=== PATIENT | female | born 1965 | race Caucasian/White ===

== ENCOUNTER 2019-09-19 14:37 | Emergency (ER) | payer SELFPAY ==
[2019-09-19 14:39] VITALS: BP 156/94; PULSE 61; RESP 18; TEMP 36.8; O2SAT 96; BMI 28.2
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
--- NOTE | 2019-09-19 14:51 | EKG12_ITS ---
Test Reason : MENTAL EVAL Blood Pressure : / mmHG Vent. Rate : 099 BPM Atrial Rate : 099 BPM P-R Int : 142 ms QRS Dur : 092 ms QT Int : 342 ms P-R-T Axes : 050 014 005 degrees QTc Int : 438 ms Normal sinus rhythm Normal ECG Confirmed by VIJAY LAUREN, LIBORIO ([id number]), web editor JULIANNE FARIA ([id number]) on 09/24/2019 8:54:34 AM Referred By: ROSANGELA Confirmed By:LIBORIO LINARES MD
[2019-09-19 15:33] LABS: Vista UDS pH Range 5
--- NOTE | 2019-09-19 15:45 | CM.ED ---
SOCIAL WORK Collaboration with Dr. Krueger. Patient will require inpatient psych hospitalization for stabilization. Patient is self-pay. Crisis to evaluate once medically cleared. Staff updated. Angel Luis Fitzgerald, HYDROELECTRIC PRODUCTION TECHNICIAN, EIGHT ARM OPERATOR
--- NOTE | 2019-09-19 16:00 | ED.RN ---
[employer] CALLED DUE TO PATIENT BEING UNCOOPERATIVE AND REFUSING BLOODWORK AND MEDICATIONS. STATES WE ARE DOING THIS AGAINST HER WILL AND IT IS AGAINST THE LAW. STATES SHE IS GOING TO [place]. PD AT BEDSIDE SPEAKING WITH PATIENT. AFTER EXTENSIVE TALKING WITH PATIENT BY PD AND ER STAFF PATIENT AGREES TO MEDICATION AND BLOODWORK.
--- NOTE | 2019-09-19 16:14 | ED.RN ---
[place] [employer] CONTACTED TO ASSIST WITH PT
[2019-09-19] MEDS: Ziprasidone IM 20 MG/ML VIAL IM (16:35)
[2019-09-19 16:40] LABS: Amphetamine Urine VISTA NEGATIVE (<1000 ng/mL); Barbiturate Urine VISTA NEGATIVE (< 200 ng/mL); Benzodiazepine Urine VISTA NEGATIVE (< 200 ng/mL); Cocaine Urine VISTA NEGATIVE (< 300 ng/mL); Ecstacy Urine VISTA NEGATIVE (< 500 ng/mL); Methadone Urine VISTA NEGATIVE (< 300 ng/mL); PCP Urine VISTA NEGATIVE (< 25 ng/mL); THC Urine VISTA NEGATIVE (< 50 ng/mL)
[2019-09-19 17:08] LABS: Absolute Lymphocyte Count 2.09 X10^3/uL (0.83-4.51); Absolute Neutrophil Count 6.3 X10^3/uL (2.0-7.7); Basophil# 0.02 X10^3/uL; Basophil% 0.2 % (0-1); Eosinophil# 0.05 X10^3/uL; Eosinophils% 0.5 % (0-5); Hematocrit 40.5 % (37-47); Hemoglobin 12.8 g/dL (12.0-15.0); Lymphocyte # 2.09 X10^3/ul (4.0); Lymphocyte % 22.4 % (19-41); Mean Corp Hgb Conc 31.6 g/dL (32-36); Mean Corpuscular Hgb 27.2 pg (27.0-32.0); Mean Platelet Vol. 10.4 fl (6.2-12.0); Monocyte# 0.84 X10^3/uL; NRBC Flagged by Analyzer 0 % (0-5); Neutrophil # 6.31 X10^3/uL (2.7-7.7); Neutrophil % 67.6 % (47-70); Platelet Count 337 K/mm3 (150-450); RBC Distribution Width CV 13.2 % (11.6-14.6); RBC Distribution Width SD 40.8 fl (35.1-43.9); Red Blood Count 4.71 M/mm3 (4.2-5.4); White Blood Count 9.3 K/mm3 (4.4-11.0)
[2019-09-19 17:21] LABS: Red Blood Cells-Urine 0 SEEN /hpf (0-5)
[2019-09-19 17:22] LABS: Color, Urine Amber (Yellow); Glucose, Dipstick Normal (Normal); Ketone-Dipstick 50 mg/dl (Negative); Leukocyte Esterase-Dipstick 500 /ul (Negative); Nitrite-Dipstick Negative (Negative); Occult Blood-Urine 10 /ul (Negative); Protein-Dipstick 30 mg/dl (Negative); Urine Clarity Clear (Clear); Urine Urobilinogen 1 mg/dl (Normal)
[2019-09-19 17:24] LABS: Urine Bilirubin Dipstick 1 mg/dL (Negative)
[2019-09-19 17:29] LABS: Anion Gap 8 (5-15); BUN 17 mg/dL (7-18); BUN/Creat Ratio 21.9 RATIO (10-20); Calcium,Total 10.4 mg/dL (8.5-10.1); Chloride 109 mmol/L (98-107); Creatinine, Serum 0.78 mg/dL (0.55-1.02); EST Glomerular Filtration Rate 82 mL/min (>60); Est Glom Filt Rate - Afr Amer 99 mL/min (>60); Estimated Creatinine Clearance 75.39 ml/min; Glucose 93 mg/dL (74-106); Potassium 3.3 mmol/L (3.5-5.1); Sodium Level 141 mmol/L (136-145)
[2019-09-19 17:37] LABS: Bacteria 1+ /hpf (None Seen); Calcium Oxalate Crystals Ur 2+ /hpf (<or=2+); Hyaline Cast 10-25 SEEN /lpf (0-5); Mucous, Urine 3+ /hpf (<or=2+); Squamous Epithelial Cells - UA 5-10 SEEN /hpf (5-10); White Blood Cells 25-50 SEEN /hpf (0-5)
[2019-09-19 18:20] LABS: Alcohol, Blood (Medical)-Serum < 3.0 mg/dL
[2019-09-19 19:11] VITALS: RESP 18
[2019-09-19 19:41] VITALS: BP 133/85; PULSE 95; RESP 16; TEMP 36.5; O2SAT 98
[2019-09-19] MEDS: Cephalexin 250 MG Capsule 500 MG PO (19:46)
[2019-09-19 20:05] LABS: Free T3 3.3 pg/mL (2.18-3.98); T4 Free Direct 1.18 ng/dL (0.76-1.46)
--- NOTE | 2019-09-19 20:59 | CM.ED ---
SOCIAL WORK Crisis called, spoke with Gertrude. Case Liner to fax chart. Gertrude to call in to complete assessment. Angel Luis Fitzgerald, TRAVEL COTA, CARPET YARN WINDER OPERATOR
[2019-09-19 21:00] VITALS: RESP 18
[2019-09-20] VITALS (9 sets, daily range): BP systolic 128–147; BP diastolic 78–98; PULSE 72–97; RESP 14–18; TEMP 36.3; O2SAT 98–100
--- NOTE | 2019-09-20 00:23 | ED.RN ---
Assisted patient to bathroom. Patient ambulated without difficulty and did not require assistance. Provided patient with sandwich,water, cheese stick, and applesauce per request.
--- NOTE | 2019-09-20 01:44 | ED.RN ---
Patient on phone with crisis.
[2019-09-20] MEDS: Acetaminophen 500 MG Tablet 1000 MG PO (03:45)
[2019-09-20] MEDS: Ibuprofen 600 MG Tablet PO (14:03)
--- NOTE | 2019-09-20 16:21 | NURSING ---
PATIENT ACCEPTED AT [facility]. CRISIS TO CALL FOR TRANSPORTATION
--- NOTE | 2019-09-20 16:26 | NURSING ---
[facility] COMING FOR PATIENT
== END 2019-09-20 17:09 ==
PROVIDERS: Emergency Provider Emergency Medicine
DX: F30.2 Manic episode, severe with psychotic symptoms (principal); Z91.411 Personal history of adult psychological abuse; Z87.440 Personal history of urinary (tract) infections
CPT/HCPCS: 80048; 80307; 80320; 81001; 84439; 84443; 84481; 85025; 87086; 87088; 87635; 93005; 94799; 96372; 99284; G0480; J3486; U0003

== ENCOUNTER 2019-10-01 01:39 | Emergency (ER) | payer SELFPAY ==
[2019-10-01] VITALS (11 sets, daily range): BP systolic 127–159; BP diastolic 76–103; PULSE 96–119; RESP 14–20; TEMP 36.4; O2SAT 98–100; BMI 28.2
--- NOTE | 2019-10-01 02:05 | ED.DCSUM_ITS ---
History of Present Illness Chief Complaint: Mental Health Informant: Patient Associated Symptoms: Negative for: Change in Eating, Change in sleeping, Suicidal Thoughts, Visual Hallucinations, Auditory Hallucinations Narrative: Patient is brought by police elisa, after being found going from one person's property to another, she was not soliciting anything in particular but tells police that she was looking for a meth lab and also told them that she stopped taking her medication, and had not slept in 3 nights. However, here, she states she has been sleeping well, and taking her medication which is trazodone, although she states it does not help her anyway. She states she is on a different medication for sleep and it seems to be working well since she sleeps with no problem. States she has been eating okay as well. Denies any suicidal ideation, drug use, alcohol use. She does not know what her mental health diagnosis is. Past Medical History - Allergies and Home Meds Allergies/Adverse Reactions: Allergies No Known Allergies Allergy (Verified 09/19/19 19:48) Primary Care Physician: Care Physician,No Primary [Primary Care Provider] - Lives: Alone Smoking Status: Never smoker Alcohol: None Drugs: None Review of Systems ROS: Unable to Obtain - very limited due to pt not able to complete a thought; very tangential General: Denies: Chills, Fever ENT: Reports: - - Canker sores everywhere in my mouth that she states are not as bad right now. Denies: Rhinorrhea, Sore throat Cardiovascular: Denies: Chest pain Respiratory: Denies: Dyspnea Gastrointestinal: Denies: Abdominal pain, Nausea, Vomiting, Diarrhea Genitourinary: Reports: Frequency. Denies: Dysuria Musculoskeletal: Denies: Swelling, Extremity Pain Skin: Denies: Rash, Wounds Neurological: Denies: Headache, Weakness, Numbness Physical Exam Vital Signs/Narrative: Vital Signs Temp Pulse Resp BP Pulse Ox 10/01/19 01:40 97.5 F L 119 H 20 H 148/103 H 99 Inital Vital Signs reviewed: Yes General: Well nourished, Well developed, - - NAD Head: Normocephalic, Atraumatic Eyes: Perrl, EOMI ENT: Moist mucous membranes, No rhinorrhea, - - No intraoral mucosal or tongue lesions noted Neck: Supple, Nontender Cardiovascular: Regular rate, Regular rhythm, No murmurs Respiratory: No distress, CTA bilaterally, Chest nontender Abdomen: Soft, Nontender, Nondistended, Normal bowel sounds Back: Nontender, Normal Inspection. Negative for: CVA tenderness Extremities: Nontender, No Edema Skin: Normal color, No rash, No Trauma Neurological: Alert, Oriented x3, Cranial nerves II-XII grossly intact, Normal Strength, Normal Sensation, Normal Gait Psych: No suicidal or homicidal ideation, Normal Stable Appropriate Affect, Labile - at times, Pressured Speech, Flight of Ideas, Incoherent thoughts - loose associations, very tangential. Negative for: Hallucinations, Delusions Diagnostic/Tx/Re-eval Laboratory Tests 10/01/19 10/01/19 10/01/19 Range/Units 04:00 04:00 02:15 WBC (4.4-11.0) K/mm3 RBC (4.2-5.4) M/mm3 Hgb (12.0-15.0) g/dL Hct (37-47) % MCV (81-99) fL MCH (27.0-32.0) pg MCHC (32-36) g/dL RDW Std Deviation (35.1-43.9) fl RDW Coeff of Sendy (11.6-14.6) % Plt Count (150-450) K/mm3 MPV (6.2-12.0) fl Immature Gran % (Auto) (0.0-0.9) % Neut % (Auto) (47-70) % Lymph % (Auto) (19-41) % [place] % (Auto) (0-10) % Eos % (Auto) (0-5) % Baso % (Auto) (0-1) % Absolute Neuts (auto) (2.0-7.7) X10^3/uL Absolute Lymphs (auto) (0.83-4.51) X10^3/uL Nucleated RBC % (0-5) % Sodium (136-145) mmol/L Potassium (3.5-5.1) mmol/L Chloride (98-107) mmol/L Carbon Dioxide (21.0-32.0) mmol/L Anion Gap (5-15) BUN (7-18) mg/dL Creatinine (0.55-1.02) mg/dL Estim Creat Clear Calc ml/min Est GFR (MDRD) Af Amer (>60) mL/min Est GFR (MDRD) Non-Af (>60) mL/min BUN/Creatinine Ratio (10-20) RATIO Glucose (74-106) mg/dL Calcium (8.5-10.1) mg/dL TSH (0.358-3.74) uIU/mL Urine Color Yellow (Yellow) Urine Clarity Clear (Clear) Urine pH 5.0 (5.0 - 8.0) Ur Specific [place] 1.025 (1.002-1.030) Urine Protein Negative (Negative) mg/dl Urine Glucose (UA) Normal (Normal) mg/dl Urine Ketones 150 H (Negative) mg/dl Urine Occult Blood 10 H (Negative) /ul Urine Nitrite Negative (Negative) Urine Bilirubin Negative (Negative) mg/dL Urine Urobilinogen Normal (Normal) mg/dl Ur Leukocyte Esterase 500 H (Negative) /ul Urine RBC 0 SEEN (0-5) /hpf Urine WBC 5-10 SEEN (0-5) /hpf Ur Squamous Epith Cells 50-100 SEEN (5-10) /hpf Urine Bacteria 0 SEEN (None Seen) /hpf Urine Mucus 2+ (<or=2+) /hpf Urine Opiates Screen NEGATIVE (< 300 ng/mL) Urine Methadone Screen NEGATIVE (< 300 ng/mL) Ur Barbiturates Screen NEGATIVE (< 200 ng/mL) Ur Phencyclidine Scrn NEGATIVE (< 25 ng/mL) Ur Amphetamines Screen NEGATIVE (<1000 ng/mL) U Methamphetamin-MDMA NEGATIVE (< 500 ng/mL) U Benzodiazepines Scrn NEGATIVE (< 200 ng/mL) Urine Cocaine Screen NEGATIVE (< 300 ng/mL) U Cannabinoids Screen NEGATIVE (< 50 ng/mL) Ur Drug Screen Comment Ethyl Alcohol 6.0 mg/dL 10/01/19 10/01/19 Range/Units 02:15 02:15 WBC 11.5 H (4.4-11.0) K/mm3 RBC 4.57 (4.2-5.4) M/mm3 Hgb 12.4 (12.0-15.0) g/dL Hct 40.2 (37-47) % MCV 88.0 (81-99) fL MCH 27.1 (27.0-32.0) pg MCHC 30.8 L (32-36) g/dL RDW Std Deviation 42.6 (35.1-43.9) fl RDW Coeff of Sendy 13.3 (11.6-14.6) % Plt Count 302 (150-450) K/mm3 MPV 10.4 (6.2-12.0) fl Immature Gran % (Auto) 0.300 (0.0-0.9) % Neut % (Auto) 71.5 H (47-70) % Lymph % (Auto) 19.0 (19-41) % [place] % (Auto) 8.3 (0-10) % Eos % (Auto) 0.5 (0-5) % Baso % (Auto) 0.4 (0-1) % Absolute Neuts (auto) 8.2 H (2.0-7.7) X10^3/uL Absolute Lymphs (auto) 2.17 (0.83-4.51) X10^3/uL Nucleated RBC % 0 (0-5) % Sodium 137 (136-145) mmol/L Potassium 4.0 (3.5-5.1) mmol/L Chloride 104 (98-107) mmol/L Carbon Dioxide 26.0 (21.0-32.0) mmol/L Anion Gap 7 (5-15) BUN 22 H (7-18) mg/dL Creatinine 0.90 (0.55-1.02) mg/dL Estim Creat Clear Calc 65.34 ml/min Est GFR (MDRD) Af Amer 83 (>60) mL/min Est GFR (MDRD) Non-Af 68 (>60) mL/min BUN/Creatinine Ratio 24.3 H (10-20) RATIO Glucose 90 (74-106) mg/dL Calcium 10.5 H (8.5-10.1) mg/dL TSH 0.54 (0.358-3.74) uIU/mL Urine Color (Yellow) Urine Clarity (Clear) Urine pH (5.0 - 8.0) Ur Specific [place] (1.002-1.030) Urine Protein (Negative) mg/dl Urine Glucose (UA) (Normal) mg/dl Urine Ketones (Negative) mg/dl Urine Occult Blood (Negative) /ul Urine Nitrite (Negative) Urine Bilirubin (Negative) mg/dL Urine Urobilinogen (Normal) mg/dl Ur Leukocyte Esterase (Negative) /ul Urine RBC (0-5) /hpf Urine WBC (0-5) /hpf Ur Squamous Epith Cells (5-10) /hpf Urine Bacteria (None Seen) /hpf Urine Mucus (<or=2+) /hpf Urine Opiates Screen (< 300 ng/mL) Urine Methadone Screen (< 300 ng/mL) Ur Barbiturates Screen (< 200 ng/mL) Ur Phencyclidine Scrn (< 25 ng/mL) Ur Amphetamines Screen (<1000 ng/mL) U Methamphetamin-MDMA (< 500 ng/mL) U Benzodiazepines Scrn (< 200 ng/mL) Urine Cocaine Screen (< 300 ng/mL) U Cannabinoids Screen (< 50 ng/mL) Ur Drug Screen Comment Ethyl Alcohol mg/dL Patient remained cooperative. She is quite manic. Crisis discussed with her over the phone and agrees. She is medically cleared with the above labs, the urinalysis was sent for culture since it dipped for 500 leukocyte esterase, however with the amount of epithelial cells in it and 0 bacteria, it is more likely to be due to contamination than true infection. Expected plan is pink slip to psychiatric facility for inpatient treatment and further evaluation. ED Disposition - Plan for ED Patient: Disposition: Psychiatric Hospital or Unit Diagnosis: Mckayla
[2019-10-01 02:25] LABS: Absolute Lymphocyte Count 2.17 X10^3/uL (0.83-4.51); Absolute Neutrophil Count 8.2 X10^3/uL (2.0-7.7); Basophil# 0.05 X10^3/uL; Basophil% 0.4 % (0-1); Eosinophil# 0.06 X10^3/uL; Eosinophils% 0.5 % (0-5); Hematocrit 40.2 % (37-47); Hemoglobin 12.4 g/dL (12.0-15.0); Lymphocyte # 2.17 X10^3/ul (4.0); Mean Corp Hgb Conc 30.8 g/dL (32-36); Mean Corpuscular Hgb 27.1 pg (27.0-32.0); Mean Platelet Vol. 10.4 fl (6.2-12.0); Monocyte# 0.95 X10^3/uL; Monocyte% 8.3 % (0-10); NRBC Flagged by Analyzer 0 % (0-5); Neutrophil # 8.18 X10^3/uL (2.7-7.7); Neutrophil % 71.5 % (47-70); Platelet Count 302 K/mm3 (150-450); RBC Distribution Width CV 13.3 % (11.6-14.6); RBC Distribution Width SD 42.6 fl (35.1-43.9); Red Blood Count 4.57 M/mm3 (4.2-5.4); White Blood Count 11.5 K/mm3 (4.4-11.0)
[2019-10-01 02:50] LABS: Anion Gap 7 (5-15); BUN 22 mg/dL (7-18); BUN/Creat Ratio 24.3 RATIO (10-20); Calcium,Total 10.5 mg/dL (8.5-10.1); Chloride 104 mmol/L (98-107); EST Glomerular Filtration Rate 68 mL/min (>60); Est Glom Filt Rate - Afr Amer 83 mL/min (>60); Estimated Creatinine Clearance 65.34 ml/min; Glucose 90 mg/dL (74-106); Sodium Level 137 mmol/L (136-145); Thyroid Stim Hormone (TSH) 0.54 uIU/mL (0.358-3.74)
--- NOTE | 2019-10-01 03:11 | ED.RN ---
CALLED CRISIS, SPOKE TO ALEKSANDR, AND FAXED THE REPORT
--- NOTE | 2019-10-01 03:41 | ED.RN ---
CRISIS ON THE PHONE WITH THE PT
[2019-10-01 04:09] LABS: Bacteria 0 SEEN /hpf (None Seen); Red Blood Cells-Urine 0 SEEN /hpf (0-5)
[2019-10-01 04:10] LABS: Color, Urine Yellow (Yellow); Glucose, Dipstick Normal (Normal); Leukocyte Esterase-Dipstick 500 /ul (Negative); Nitrite-Dipstick Negative (Negative); Occult Blood-Urine 10 /ul (Negative); Protein-Dipstick Negative (Negative); Specific Gravity, Urine 1.025 (1.002-1.030); Urine Bilirubin Dipstick Negative (Negative); Urine Clarity Clear (Clear); Urine Urobilinogen Normal (Normal)
[2019-10-01 04:22] LABS: Ketone-Dipstick 150 mg/dl (Negative)
[2019-10-01 04:29] LABS: Mucous, Urine 2+ /hpf (<or=2+); Squamous Epithelial Cells - UA 50-100 SEEN /hpf (5-10); White Blood Cells 5-10 SEEN /hpf (0-5)
[2019-10-01 04:32] LABS: Amphetamine Urine VISTA NEGATIVE (<1000 ng/mL); Barbiturate Urine VISTA NEGATIVE (< 200 ng/mL); Benzodiazepine Urine VISTA NEGATIVE (< 200 ng/mL); Cocaine Urine VISTA NEGATIVE (< 300 ng/mL); Ecstacy Urine VISTA NEGATIVE (< 500 ng/mL); Methadone Urine VISTA NEGATIVE (< 300 ng/mL); PCP Urine VISTA NEGATIVE (< 25 ng/mL); THC Urine VISTA NEGATIVE (< 50 ng/mL); Vista UDS pH Range 6
--- NOTE | 2019-10-01 07:07 | EKG12_ITS ---
Test Reason : MENTAL HEALTH Blood Pressure : / mmHG Vent. Rate : 115 BPM Atrial Rate : 115 BPM P-R Int : 140 ms QRS Dur : 084 ms QT Int : 340 ms P-R-T Axes : 051 058 032 degrees QTc Int : 470 ms Sinus tachycardia Possible Left atrial enlargement Borderline ECG Confirmed by AMBER HOPPER ([id number]), television news video editor CHARMAINE WOODS ([id number]) on 10/04/2019 1:22:49 PM Referred By: GORAN Confirmed By:AMBER HOPPER
--- NOTE | 2019-10-01 07:08 | ED.RN ---
[facility] called back and requesting additional information for admission
[2019-10-01 07:29] LABS: AST(SGOT) 37 U/L (15-37); Alanine Aminotransfer ALT/SGPT 39 U/L (13-56); Albumin, Serum 4.6 g/dL (3.2-5.0); Alkaline Phosphatase 114 U/L (45-117); Bilirubin, Direct 0.21 mg/dL (0.00-0.30); Globulin 3.7 g/dL (2.2-4.2); Protein, Total 8.3 g/dL (6.4-8.2)
[2019-10-01] MEDS: Ziprasidone IM 20 MG/ML VIAL IM (14:47)
--- NOTE | 2019-10-01 16:25 | NURSING ---
ACCEPTED AT [facility] CALLED BLATA RAMIREZ, TO ARRANGE TRANSPORT
== END 2019-10-01 17:42 ==
PROVIDERS: Emergency Provider Emergency Medicine
DX: F30.9 Manic episode, unspecified (principal); R35.0 Frequency of micturition; Z91.14 Patient's other noncompliance with medication regimen
CPT/HCPCS: 36415; 80048; 80076; 80307; 80320; 81001; 84443; 85025; 87086; 87088; 93005; 96372; 99285; G0480; J3486

== ENCOUNTER 2020-01-28 09:32 | Emergency (ER) | payer SELFPAY ==
[2019-10-01 01:40] VITALS: BMI 28.2
[2020-01-28 09:33] VITALS: BP 135/76; PULSE 133; RESP 18; TEMP 36.6; O2SAT 98; BMI 22.3
--- NOTE | 2020-01-28 10:07 | ED.VISSUMM ---
- ER Visit Summary Date of Service: 01/28/20 Chief Complaint: [Abnormal behavior] History of Present Illness: The patient is a 55 F [presents to the emergency department from work. Patient's coworkers noted that patient was sleeping more and not as interactive as usual. They were concerned about her and brought her to the emergency department for evaluation. Patient does have psychiatric history and states that she is not been feeling well for a while. Patient states that over the last 2 to 3 months she is just not been eating. Patient states that she has been sleeping normally. Patient's was placed in a detention about 6 weeks ago. Patient denies any suicidal or homicidal ideation. She denies any auditory or visual hallucinations. She is currently not taking any psychiatric medications. She denies any physical complaints.] Physical Examination: [HEENT-PERRLA, EOMI. Cranial nerves II through XII grossly intact. TMs clear. Mucous membranes moist. No adenopathy. Cardiovascular-regular and tachycardic. No murmurs auscultated. Lungs-clear to auscultation, chest wall stable without crepitus or subcu emphysema Abdomen-normoactive bowel sounds, soft, nontender, no rebound or rigidity, no peritoneal signs. Extremities-intact ?4, normal range of motion, normal pulses, atraumatic] Test Results: [CBC with it was normal. Chemistries unremarkable. Urinalysis showed 500 excite esterase and 10-25 WBCs ++1 bacteria. Tox cream was negative. Alcohol was negative.] Emergency Department Course and Treatment: [She was evaluated by social services assistant and after discussing with counseling center who knows patient it was determined that patient would benefit from inpatient hospitalization. Patient's nephew also called to advise that he did not feel patient was safe to be at home and that she is schizophrenic and has been off her medications.] Treatment Plan: [Transfer to psychiatric facility for further treatment and stabilization.] Disposition: [Transfer] Impression: [Psychosis/schizophrenia-decompensated Noncompliance with medications] This note was generated with ZeaVision dictation software. It may contain incorrect words, spelling, and punctuation that were not noted in review of the chart prior to signing ED Disposition - Plan for ED Patient: Referrals: Care Physician,No Primary [Primary Care Provider] -
[2020-01-28 10:36] LABS: Anion Gap 8 (5-15); BUN 15 mg/dL (7-18); BUN/Creat Ratio 22.5 RATIO (10-20); Calcium,Total 10.3 mg/dL (8.5-10.1); Chloride 100 mmol/L (98-107); Creatinine, Serum 0.67 mg/dL (0.55-1.02); EST Glomerular Filtration Rate 97 mL/min (>60); Est Glom Filt Rate - Afr Amer 117 mL/min (>60); Estimated Creatinine Clearance 86.73 ml/min; Glucose 129 mg/dL (74-106); Potassium 3.2 mmol/L (3.5-5.1); Sodium Level 136 mmol/L (136-145)
[2020-01-28 10:44] LABS: Alcohol, Blood (Medical)-Serum < 3.0 mg/dL
--- NOTE | 2020-01-28 11:18 | CM.ED ---
SOCIAL WORK Informant: Dr. Wolfe Reason for Consult: Mental Health Evaluation Met with patient in room to assess for placement needs. Patient is self-pay. Patient reports has not been eating, depressed, not currently taking any medications, and somewhat caring for self. Patient does not report suicidal or homicidal ideation. Patient reports has followed with Ronnell Cotto at [facility] in the past. Patient gave permission for this worker to follow up with [facility]. Per chart review, patient was evaluated by Crisis in August and September and was placed at [facility] both visits. Call to Crisis, spoke with Gabi. Gabi reviewed notes from previous visits. Collaboration with Dr. Wolfe. Crisis to evaluate for placement once patient is medically cleared. Plan: Crisis to assess Angel Luis Fitzgerald MSW, FLOAT REMOVER
[2020-01-28 11:21] LABS: Color, Urine Yellow (Yellow); Glucose, Dipstick Normal (Normal); Ketone-Dipstick 50 mg/dl (Negative); Leukocyte Esterase-Dipstick 500 /ul (Negative); Nitrite-Dipstick Negative (Negative); Occult Blood-Urine 10 /ul (Negative); Protein-Dipstick 30 mg/dl (Negative); Specific Gravity, Urine 1.025 (1.002-1.030); Urine Clarity Cloudy (Clear); Urine Urobilinogen 4 mg/dl (Normal)
[2020-01-28 11:24] LABS: Urine Bilirubin Dipstick 1 mg/dL (Negative)
[2020-01-28 11:31] LABS: White Blood Cells 10-25 SEEN /hpf (0-5)
[2020-01-28 11:32] LABS: Bacteria 1+ /hpf (None Seen); Mucous, Urine 2+ /hpf (<or=2+); Red Blood Cells-Urine 0-5 SEEN /hpf (0-5); Squamous Epithelial Cells - UA 0-5 SEEN /hpf (5-10)
[2020-01-28 11:35] LABS: Absolute Lymphocyte Count 0.91 X10^3/uL (0.83-4.51); Absolute Neutrophil Count 5.3 X10^3/uL (2.0-7.7); Basophil# 0.02 X10^3/uL; Basophil% 0.3 % (0-1); Eosinophil# 0.02 X10^3/uL; Eosinophils% 0.3 % (0-5); Hematocrit 41.3 % (37-47); Hemoglobin 13.4 g/dL (12.0-15.0); Lymphocyte # 0.91 X10^3/ul (4.0); Lymphocyte % 13.4 % (19-41); Mean Corp Hgb Conc 32.4 g/dL (32-36); Mean Corpuscular Hgb 27.5 pg (27.0-32.0); Mean Corpuscular Volume 84.8 fL (81-99); Mean Platelet Vol. 11.6 fl (6.2-12.0); Monocyte# 0.47 X10^3/uL; Monocyte% 6.9 % (0-10); NRBC Flagged by Analyzer 0 % (0-5); Neutrophil # 5.34 X10^3/uL (2.7-7.7); Neutrophil % 78.7 % (47-70); Platelet Count 219 K/mm3 (150-450); RBC Distribution Width CV 12.6 % (11.6-14.6); RBC Distribution Width SD 38.2 fl (35.1-43.9); Red Blood Count 4.87 M/mm3 (4.2-5.4); White Blood Count 6.8 K/mm3 (4.4-11.0)
[2020-01-28 11:37] LABS: Amphetamine Urine VISTA NEGATIVE (<1000 ng/mL); Barbiturate Urine VISTA NEGATIVE (< 200 ng/mL); Benzodiazepine Urine VISTA NEGATIVE (< 200 ng/mL); Cocaine Urine VISTA NEGATIVE (< 300 ng/mL); Ecstacy Urine VISTA NEGATIVE (< 500 ng/mL); Methadone Urine VISTA NEGATIVE (< 300 ng/mL); PCP Urine VISTA NEGATIVE (< 25 ng/mL); THC Urine VISTA NEGATIVE (< 50 ng/mL); Vista UDS pH Range 5
[2020-01-28] MEDS: Smz/Tmp Ds Tablet 1 TABLET PO (11:43)
--- NOTE | 2020-01-28 13:26 | CM.ED ---
SOCIAL WORK Updated by Dr. Wolfe patient is medically cleared. Crisis updated. Chart faxed. Angel Luis Fitzgerald, STEEL TESTER, LAST REMODELER REPAIRER
--- NOTE | 2020-01-28 14:29 | CM.ED ---
SOCIAL WORK Call from [facility] with Crisis for assessment. Call facilitated to patient at this time. Angel Luis Fitzgerald, SPIDER ASSEMBLER, TOY STUFFER
[2020-01-28 15:13] VITALS: BP 141/86; PULSE 100; RESP 16; O2SAT 97
--- NOTE | 2020-01-28 15:14 | ED.RN ---
Resting quietly talking n the phone
--- NOTE | 2020-01-28 15:14 | ED.RN ---
spoke with pt nephew and she gave the keys to her truck so he could bring it home from [facility].
--- NOTE | 2020-01-28 15:16 | ED.RN ---
[facility]; [phone]
--- NOTE | 2020-01-28 16:30 | CM.ED ---
SOCIAL WORK Spoke with Gabi at [facility] and Dr. Waddell. Patient has been [place] S[facility]. Nurse, Hector updated. Per Gabi, referral has been made to [facility] as [facility] is working on contract with [facility] as [facility] is not accepting patients. Angel Luis Fitzgerald, EDUCATIONAL TECHNOLOGY SPECIALIST, COMPUTER SOFTWARE ENGINEER
--- NOTE | 2020-01-28 17:11 | ED.RN ---
Pt in gown. 2 bags of personal clothing.
--- NOTE | 2020-01-28 18:35 | CM.ED ---
SOCIAL WORK Patient pending at [facility]. Angel Luis Fitzgerald, PACKAGING MACHINE SUPPLIES DISTRIBUTOR, SHOP FOREMAN
[2020-01-28 19:00] VITALS: BP 122/84; PULSE 105; RESP 16; O2SAT 97
--- NOTE | 2020-01-28 19:29 | CM.ED ---
SOCIAL WORK Call from [facility] with Crisis, patient accepted to [facility] by Dr. Arnold to the [address]. Nurse to call report to [phone]. Crisis to set up transport. Staff updated. Plan: [facility] Fitzgerald, SOFTWARE TESTING SPECIALIST, LIGHTING FIXTURES DECORATOR
--- NOTE | 2020-01-28 19:32 | ED.RN ---
Hector SANTIAGO called report to [facility].
--- NOTE | 2020-01-28 21:43 | ED.RN ---
called Neel rivera to inform of pt's time of transfer.
== END 2020-01-28 21:25 ==
LOC: ED 10:28
PROVIDERS: Emergency Provider Emergency Medicine
DX: F20.9 Schizophrenia, unspecified (principal); Z91.14 Patient's other noncompliance with medication regimen; F32.9 Major depressive disorder, single episode, unspecified
CPT/HCPCS: 80048; 80307; 80320; 81001; 85025; 87426; 99284; G0480

== ENCOUNTER → 2022-09-20 | Outpatient (CLI) | payer MEDICAID, SELFPAY ==
[2022-09-20 15:53] LABS: Vitamin B12 351 pg/mL (211-911); Vitamin D,25 Hydroxy 15.3 ng/mL
[2022-09-20 16:08] LABS: AST(SGOT) 20 U/L (15-37); Alanine Aminotransfer ALT/SGPT 32 U/L (13-56); Albumin, Serum 3.8 g/dL (3.2-5.0); Alkaline Phosphatase 111 U/L (45-117); Anion Gap 5 (5-15); BUN 12 mg/dL (7-18); BUN/Creat Ratio 13.3 RATIO (10-20); Calcium,Total 9.6 mg/dL (8.5-10.1); Chloride 106 mmol/L (98-107); Cholesterol 255 mg/dL (200); EST Glomerular Filtration Rate 68 mL/min (>60); Est Glom Filt Rate - Afr Amer 82 mL/min (>60); Ferritin 457 ng/mL (8-252); Free T3 2.8 pg/mL (2.18-3.98); Globulin 3.8 g/dL (2.2-4.2); Glucose 106 mg/dL (74-106); High Density Lipoprotein 82 mg/dL; Iron 102 ug/dL (50-170); Iron Binding Capacity,Total 325 ug/dL (250-450); PERCENT IRON SATURATION 31.4 % (15.0-55.0); Potassium 4.2 mmol/L (3.5-5.1); Protein, Total 7.6 g/dL (6.4-8.2); Sodium Level 139 mmol/L (136-145); T4 Free Direct 0.91 ng/dL (0.76-1.46); Thyroid Stim Hormone (TSH) 0.85 uIU/mL (0.358-3.74); Triglycerides 86 mg/dL; Very Low Density Lipoprotein 17 mg/dL (5-40)
== END | disposition home or self-care (01) ==
PROVIDERS: Referring Provider Nurse Practitioner Psychiatric/Mental Health; Visit Provider Nurse Practitioner Psychiatric/Mental Health
DX: Z79.899 Other long term (current) drug therapy (principal); R53.83 Other fatigue
CPT/HCPCS: 36415; 80053; 80061; 82248; 82306; 82607; 82728; 82746; 83540; 83550; 84439; 84443; 84481